=== PATIENT | male | born 1940 | race Caucasian/White ===

== ENCOUNTER 2022-09-17 08:08 | Outpatient (CLI) | payer MEDICARE, BC ==
[2022-09-17] MEDS ORDERED: Iopamidol 300 61% 100 ML VIAL FS ONE (08:16)
[2022-09-17] MEDS ORDERED: Magnevist 469MG/ML 20 ML VIAL ONE (08:27)
== END 2022-09-17 08:09 | disposition home or self-care (01) ==
LOC: CSHCT 08:08
PROVIDERS: ATTEND Internal Medicine
DX: C20 Malignant neoplasm of rectum (principal); Z92.21 Personal history of antineoplastic chemotherapy; D70.8 Other neutropenia
CPT/HCPCS: 71260; 72197; 74177; 80048

== ENCOUNTER 2023-01-28 12:34 | Outpatient (CLI) | payer MEDICARE, BC ==
[~2023-01-28 12:34] MED LIST: Iopamidol 300 61% 100 ML VIAL FS ONE; Magnevist 469MG/ML 20 ML VIAL ONE
== END 2023-01-28 12:35 | disposition home or self-care (01) ==
LOC: CSHCT 12:34
PROVIDERS: ATTEND Internal Medicine
DX: C20 Malignant neoplasm of rectum (principal); D70.8 Other neutropenia
CPT/HCPCS: 71260; 72197; 74177; 82565

== ENCOUNTER 2024-04-03 09:05 | Outpatient (CLI) | payer MEDICARE ==
[2024-04-03] MEDS ORDERED: Iopamidol 300 61% 100 ML VIAL FS ONE (13:48)
== END 2024-04-03 09:06 | disposition home or self-care (01) ==
LOC: CSHCT 09:05
PROVIDERS: ATTEND Internal Medicine
DX: C20 Malignant neoplasm of rectum (principal); D70.8 Other neutropenia; I51.7 Cardiomegaly
CPT/HCPCS: 36415; 71260; 74177; 82565

== ENCOUNTER 2025-01-13 13:03 | Outpatient (CLI) | payer MEDICARE ==
[~2025-01-13 13:03] MED LIST changes: -Iopamidol 300 61% 100 ML VIAL FS ONE; +Iopamidol 370 76% 100 ML VIAL ONE; -Magnevist 469MG/ML 20 ML VIAL ONE
[2025-01-13 15:57] LABS: Estimated GFR - POC 49.0
== END 2025-01-13 13:04 | disposition home or self-care (01) ==
LOC: CSHCT 13:03
PROVIDERS: ATTEND Radiology Radiation Oncology
DX: C20 Malignant neoplasm of rectum (principal); C78.00 Secondary malignant neoplasm of unspecified lung; R91.1 Solitary pulmonary nodule; I51.7 Cardiomegaly; K94.09 Other complications of colostomy
CPT/HCPCS: 71260; 74177; 82565